=== PATIENT | female | born 1950 | race Caucasian/White ===

== ENCOUNTER → 2023-11-25 12:55 | Outpatient (REF) | payer OTHER, SELFPAY | LOC: RCS 12:55 | PROVIDERS: ATTENDING PHYSICIAN Internal Medicine; FAMILY PHYSICIAN Family Medicine | DX: I48.0 Paroxysmal atrial fibrillation (principal); I10 Essential (primary) hypertension; Z95.0 Presence of cardiac pacemaker | CPT/HCPCS: 93306 ==

== ENCOUNTER → 2023-12-10 13:48 | Outpatient (REF) | payer OTHER, SELFPAY | LOC: RAD 13:48 | PROVIDERS: ATTENDING PHYSICIAN Family Medicine | DX: S70.02XA Contusion of left hip, initial encounter (principal) | CPT/HCPCS: 73502 ==

== ENCOUNTER → 2024-03-11 12:08 | Outpatient (REF) | payer OTHER, SELFPAY | LOC: RAD 12:08 | PROVIDERS: ATTENDING PHYSICIAN Physician Assistant; FAMILY PHYSICIAN Family Medicine | DX: R10.9 Unspecified abdominal pain (principal); M35.00 Sjogren syndrome, unspecified; R53.83 Other fatigue; R63.4 Abnormal weight loss | CPT/HCPCS: 71270; 74178; Q9967 ==

== ENCOUNTER → 2024-05-17 16:47 | Outpatient (REF) | payer OTHER, SELFPAY | LOC: RAD 16:47 | PROVIDERS: ATTENDING PHYSICIAN Family Medicine | DX: R07.81 Pleurodynia (principal) | CPT/HCPCS: 71101 ==

== ENCOUNTER → 2024-05-25 13:51 | Outpatient (REF) | payer OTHER, SELFPAY | LOC: MRI 3T 13:51 | PROVIDERS: ATTENDING PHYSICIAN Psychiatry & Neurology Neurology; FAMILY PHYSICIAN Family Medicine | DX: R27.0 Ataxia, unspecified (principal) | CPT/HCPCS: 70553; A9575 ==

== ENCOUNTER → 2024-08-24 14:13 | Outpatient (REF) | payer OTHER, SELFPAY | LOC: MRI 14:13 | PROVIDERS: ATTENDING PHYSICIAN Neurological Surgery; FAMILY PHYSICIAN Family Medicine | DX: R26.81 Unsteadiness on feet (principal) | CPT/HCPCS: 72141 ==

== ENCOUNTER 2024-09-26 02:54 | Observation (INO) | payer OTHER, SELFPAY ==
[2024-09-26] VITALS (11 sets, daily range): BP systolic 115–172; BP diastolic 65–96; PULSE 82; O2SAT 100; BMI 18.7; BMI 18.2
[2024-09-26 01:07] LABS: Glucose - Point of Care 109 mg/dl (70-99)
--- NOTE | 2024-09-26 01:14 | ED.CVA ---
History of Present Illness
General
Chief Complaint: CVA/TIA Symptoms
Source: patient and spouse
Exam Limitations: none
Time Seen by Provider: 09/26/24 01:06
Nursing documentation reviewed up to this point in time: agreed with
Onset of Stroke Symptoms
Onset of symptoms known: Yes
Date of onset of symptoms: 09/26/24
Time of onset of symptoms: 00:00
History of Present Illness
History of Present Illness:
73-year-old female presents to the emergency department garbled speech at with inability to use right leg. She awakened around midnight and was assisted to the bathroom. She states that she could not move her right leg. who witnessed this
speech and the leg paresthesia states that all symptoms lasted for about 5 minutes.
Past History
Past History
ED Past Medical History: Arrthythmia, GERD and HTN
ED Past Surgical History: Cardiac (ablation), Orthopedic and Other (glaucoma, hemorrhoidectomy)
Social History
Tobacco: Non-smoker
Alcohol: None
Drug: None
Personal:
Living: with family
Review of Systems
Review of Systems
Allergies reviewed?: Yes
Other source history: family
All Other Systems: ROS reviewed and negative except as documented in HPI and ROS
Constitutional: Reports no symptoms
EENT: Reports no symptoms
Respiratory: Reports no symptoms
Cardiac: Reports no symptoms
ABD/GI: Reports no symptoms
: Reports no symptoms
Musculoskeletal: Reports no symptoms
Skin: Reports no symptoms
Neurological: Reports weakness; Denies headache
Endocrine: Reports no symptoms
Hematologic/Lymphatic: Reports no symptoms
Psychiatric: Reports anxiety
Phy Exam
General Physical Exam
General Presentation: well appearing and mild distress
General age: appears stated age
General Skin: warm and dry
General Habitus: normal and elderly
General Mental: alert
General Hydration: appears well hydrated
Cardiovascular Exam
Cardiovascular Exam: regular rate/rhythm
Neurological Exam
Neurological Exam: alert, oriented x3, CN II-XII intact, no motor deficits and speech normal
Musculoskeletal Exam
Musculoskeletal Exam: full ROM
Skin Exam
Skin Exam: normal color and warm/dry
Psychiatric Exam
Psychiatric Exam: normal mood/affect and anxious
Scores
NIH Stroke Score
Level of Consciousness: 0 - Alert
LOC Questions: 0-Answers both correctly
LOC Commands: 0-Performs both correctly
Best Horizontal Gaze: 0-Normal
Visual Fink: 0=Normal, no visual loss
Facial Palsy: 0=Normal, symmetrical
Motor - Right Arm: 0=No drift 10 seconds
Motor - Left Arm: 0=No drift 10 seconds
Motor - Right Le-No drift 5 seconds
Motor - Left Le-No drift 5 seconds
Limb Ataxia: 0-Absent
Sensation: 0-Normal
Best Language: 0-No aphasia
Dysarthria: 0-Normal
Extinction and Inattention: 0-No abnormality
Total Score:: 0
Thrombolytic Contraindication
Inclusion and Exclusion criteria reviewed: Yes
Course
Orders/Labs/Results
Orders:
Orders
09/26/24 01:03
ECG [Electrocardiogram (*1)] Urgent
Reason for Study: TIA/Stroke
09/26/24 01:04
EKG- Treatment ONCE
09/26/24 01:10
CT HEAD STROKE ALERT W/o Cont Urgent
Comment:
Reason For Exam: slurring, right leg weakness
CT HEAD/NECK ANG STROKE ALERT Urgent
Comment:
Reason For Exam: slurring, right leg weakness
Bedside Glucose- Treatment ONCE
Cardiac Monitoring- Treatment ONCE
09/26/24 01:13
Complete Blood Count/With Diff Urgent
Comprehensive Metabolic Panel Urgent
Erythrocyte Sed Rate Urgent
PTT Urgent
Prothrombin Time Urgent
Troponin I Urgent
09/26/24 01:45
Aspirin 325 mg PO NOW STA
Clopidogrel Bisulfate [Plavix] 600 mg PO NOW STA
Abnormal Lab Results
09/26/24 09/26/24
01:06 01:13
Hct 36.3 L %
(37.0-47.0)
Absolute Monos (auto) 0.8 H 10^3/uL
(0.1-0.6)
Monocytes % 12.9 H %
(1.7-9.3)
APTT 36.0 H Sec
(23.4-35.0)
Potassium 3.3 L mmol/L
(3.5-5.1)
BUN 21 H mg/dl
(7-17)
Glucose 120 H mg/dl
(70-99)
Calcium 10.6 H mg/dl
(8.4-10.2)
POC Glucose 109 H mg/dl
(70-99)
09/26/24 01:13
09/26/24 01:13
Vital Signs
Initial and Last Documented VS:
Initial Vital Signs
Pulse Resp
90 15
09/26/24 01:11 09/26/24 01:11
Last Documented Vital Signs
Temp Pulse Resp BP Pulse Ox
98.6 F 82 18 172/92 97
09/26/24 01:33 09/26/24 01:33 09/26/24 01:33 09/26/24 01:33 09/26/24 01:33
*Pulse Oximetry
Patient hypoxic: no
*EKG
Interpreted by ED Provider?: Yes
Comparison EKG: changes noted (Ventricular rate has increased)
Heart Rate: 86
Rhythm: ventricular paced
[place]: normal axis
Interval: long QT (500 ms)
QRS Pattern: normal QRS
Ischemia: no ischemia
*Critical Care Note
Total Time (30-74mins, 75-104mins- exclusive of procedures): 35 (Critical care statement: A total of 35 minutes of critical care time was provided for this patient. This time is separate from time utilized to perform the aforementioned documented
procedures. Aggregate critical care time includes only time during which I was engaged in work directl)
Update Note
Update Note:
Spoke with neurology, Dr. Khan who did not recommend TNKase based on the resolution of symptoms
ED Attending Note
-
Portions of this chart may have been created with voice recognition software.� Occasional wrong word or��sound alike� substitutions may have occurred due to the inherent limitations of voice recognition software.
Discharge Plan
Departure
Patient Disposition: Admit
Date of Disposition: 09/26/24
Time of Disposition: 02:11
Admit to: Telemetry
Presentation/result/management discussed w/ accepting MD/DO: Hospitalist
Discharge Problem:
Brain TIA, Afib, Pacemaker
Prescriptions:
No Action
multivitamin 1 EACH tablet
1 ea PO DAILY
sodium chloride 1 DROP drops
1 drp BOTH EYES PRN (Reason: Dry Eyes)
calcium carbonate 500 MG tablet
500 mg PO BID
loratadine 10 MG tablet
10 mg PO DAILY
LVincentacidoph,paracasei,B.animalis 1 EACH capsule
1 ea PO DAILY
famotidine 40 mg Tablet
40 mg PO BID
aspirin 81 mg Tablet,Delayed Release (Dr/Ec)
81 mg PO DAILY
valsartan 40 mg Tablet
40 mg PO BID
ezetimibe 10 mg Tablet
10 mg PO DAILY
hydrochlorothiazide 12.5 mg Tablet
12.5 mg PO DAILY
Lumigan 0.01 % Drops
1 drp OPHTHALMIC (EYE) DAILY
Rx Instructions:
left eye
Simbrinza 1-0.2 % Drops,Suspension
1 drp OPHTHALMIC (EYE) TID
Rx Instructions:
left eye
prednisolone acetate 1 % Drops,Suspension
1 drp BOTH EYES BID
astaxanthin 12 mg Capsule
12 mg PO DAILY
ubiquinol-pyrroloquin quinone 100-10 mg Capsule
1 cap PO DAILY
Interventions
Interventions:
*Risk Screen - Suicide Last Done: 09/26/24 01:15
*General Assessment Last Done: 09/26/24 01:13
*ED- Fall Risk Assessment Last Done: 09/26/24 01:13
*ED COVID-19 Vaccine History Last Done: 09/26/24 01:13
ED- Neurological Assessment Last Done: 09/26/24 01:34
ED- Cardiac Assessment Last Done: 09/26/24 01:41
ED Swallowing Screen Last Done: 09/26/24 01:52
Discharge Date and Time
Print Language: [place]
[2024-09-26 01:23] LABS: % Basophils 1.5 % (0-2); % Eosinophils 4.5 % (0-6); % Immature Granulocytes 0.2 % (0-0.5); % Lymphocytes 30.4 % (20.5-51.1); % Monocytes 12.9 % (1.7-9.3); % Neutrophils 50.5 % (42.2-75.2); Absolute Basophils 0.1 10^3/uL (0-0.2); Absolute Eosinophils 0.3 10^3/uL (0-0.7); Absolute Lymphocytes 1.8 10^3/uL (1.2-3.4); Absolute Monocytes 0.8 10^3/uL (0.1-0.6); Hematocrit 36.3 % (37.0-47.0); Hemoglobin 12.6 g/dL (12.0-16.0); Mean Corp Hgb Conc. 34.7 g/dL (33.0-37.0); Mean Corpuscular Hgb 29.6 pg (27.0-31.0); Mean Corpuscular Volume 85.2 fL (81.0-99.0); Mean Platelet Volume 9.4 fL (7.4-10.4); Nucleated Red Blood Cells % 0 %; Platelet Count 248 10^3/uL (130-400); Red Blood Cell Count 4.26 10^6/uL (4.20-5.40); Red Cell Dist. Width 13.1 % (11.5-14.5)
[2024-09-26 01:36] LABS: ALT (SGPT) 16 U/L (0-35); AST (SGOT) 24 U/L (14-36); Albumin 4.8 g/dl (3.5-5.0); Alkaline Phosphatase 106 U/L (38-126); Blood Urea Nitrogen 21 mg/dl (7-17); Calcium 10.6 mg/dl (8.4-10.2); Carbon Dioxide 28 mmol/L (22-30); Chloride 99 mmol/L (98-107); Estimated Creatinine Clearance 56 ml/min; Glucose 120 mg/dl (70-99); Potassium 3.3 mmol/L (3.5-5.1); Sodium 139 mmol/L (135-145); Total Bilirubin 0.5 mg/dl (0.2-1.3); Total Protein 7.8 g/dl (6.3-8.2); eGFR > 60.00
[2024-09-26 01:37] LABS: INR 0.97; PT 13.2 Sec (11.4-14.6)
[2024-09-26 01:48] LABS: Troponin I 0.013 ng/ml
[2024-09-26] MEDS: ASPIRIN 325 MG PO (01:55)
[2024-09-26] MEDS: PLAVIX 600 MG PO (01:55)
--- NOTE | 2024-09-26 02:18 | HPS.HSE ---
Family Physician
-
Family Physician: Ren Zapata
Chief Complaint
-
RLE Weakness / Slurred speech
History of Present Illness
Patient is a 73y F with PMH significant for hypertension, A-Fib s/p ablation and SSS s/p PPM who presents to ED complaining of RLE weakness and slurred speech. Patient states that she fell asleep this evening while watching the news. Her
woke her around midnight to go to bed and she went to the bathroom. While in the bathroom, patient noted that she could not move her RLE. It felt 'rooted to the floor'. She had no RUE weakness, numbness, etc. No headache or vision
changes. Her asked what was wrong and noted that the patient had very slow / slurred speech. Her symptoms lasted for about 5 minutes and then began to improve. At present she has no residual complaints and feels at her baseline.
Patient denies any prior h/o stroke, [place], etc.
She denies any recent illness, fevers / chills, cough, etc.
Patient states that she did start taking a new 'Macedonian herb' in the past few days.
Patient reports > 1 year history of weight loss, taste disturbance and fatigue. This started in 04/2023.
She has been evaluated by Neurology, Neurosurgery, etc since that time.
She had MRI brain in 05/2024 that showed enlarged ventricles and small R parafalcine meningioma.
Medical History
Past Medical History
Past Medical History: Reports Other
Additional Past Medical History:
Hypertension
GERD
SSS
Rosacea
Essential Tremor
Atrial Fibrillation s/p Ablation
Gait Dysfunction / Movement Disorder
Past Surgical History: Reports Other
Additional Past Surgical History:
PVI Ablation
PPM Placement
Hemorrhoidectomy
Trigger Finger Release
Social History
Tobacco: Non-smoker
Alcohol: Occasional
Drug: None
Personal:
Living: With Family
Family History
Family History: Not pertinent
Allergies / Home Medications
Allergies reflects when Allergies were last updated in [employer].
Home Medications with original date entered in [employer]
Allergy/Medication List:
Allergies
Allergy/AdvReac Type Severity Reaction Status Date / Time
levofloxacin [From Levaquin] Allergy rash, Verified 09/26/24 01:08
severe
itching
minocycline Allergy Rash Verified 09/26/24 01:08
penicillin V Allergy rash, sore Verified 09/26/24 01:08
mouth
sulfamethoxazole Allergy rash, Verified 09/26/24 01:08
[From Bactrim] severe
itching
trimethoprim [From Bactrim] Allergy rash, Verified 09/26/24 01:08
severe
itching
enironmental Allergy sneezing, Uncoded 09/26/24 01:08
runny nose
Home Medications
L.acidoph,paracasei,B.animalis 10 billion cell capsule 1 ea PO DAILY Supplement 08/28/16
calcium carbonate 500 mg PO BID Supplement 08/28/16
loratadine 10 mg tablet 10 mg PO DAILY ALLERGY 08/28/16
multivitamin 1 ea PO DAILY Supplement 08/28/16
aspirin 81 mg tablet,delayed release 81 mg PO DAILY Blood Clot Prevention/Tx 06/15/23
bimatoprost 0.01 % eye drops (Lumigan) 1 drp ophthalmic (eye) DAILY Eye Condition 06/15/23
brinzolamide 1 %-brimonidine 0.2 % eye drops,suspension (Simbrinza) 1 drp ophthalmic (eye) TID Eye Condition 06/15/23
ezetimibe 10 mg tablet 10 mg PO DAILY High Cholesterol 06/15/23
famotidine 40 mg tablet 40 mg PO BID Gastrointestinal Issue 06/15/23
hydrochlorothiazide 12.5 mg tablet 12.5 mg PO DAILY Fluid Retention/Swelling 06/15/23
valsartan 40 mg tablet 40 mg PO BID Blood Pressure 06/15/23
astaxanthin 12 mg capsule 12 mg PO DAILY 09/26/24
cod liver oil 5 ml PO DAILY 09/26/24
prednisolone acetate 1 % eye drops,suspension 1 drp BOTH EYES BID 09/26/24
resveratrol 75 mg-quercetin 250 mg-pterostilbene 62.5 mg capsule (Resveratin Plus) 1 cap PO BID 09/26/24
ubiquinol 100 mg-pyrroloquinoline quinone (coenzyme PQQ) 10 mg capsule 1 cap PO DAILY 09/26/24
Review of Systems
-
History Source: Patient
A 12 point ROS was completed and negative except as noted: Yes
Constitutional: Denies Fever or Chills
Respiratory: Denies Cough or Trouble Breathing
Cardiac: Denies Chest Pain or Palpitations
Abdomen/GI: Denies Abdominal Pain, Nausea, Vomiting or Diarrhea
: Denies Dysuria, Frequency or Flank Pain
Neurological: Reports Weakness and Other (Slurred speech); Denies Dizzy or Headache
Psych: Denies Depression or Anxiety
Physical Exam
Vital Signs
Vital Signs
Temp Pulse Resp BP Pulse Ox
98.6 F 82 18 172/92 97
09/26/24 01:33 09/26/24 01:33 09/26/24 01:33 09/26/24 01:33 09/26/24 01:33
Physical Exam
General: Other (73y F in no acute distress.)
HEENT: Moist mucous membranes and PERRLA
Respiratory: Clear; No Wheezes, Rales or Rhonchi
Cardiac: S1/S2, Regular Rhythm and Murmur (II/ BESS)
GI: Soft, Non Tender, Non Distended and Normal Bowel Sounds
Musculoskeletal: No Clubbing, No Cyanosis and No Edema
Neuro: AO x 3 and Nonfocal/grossly intact
Laboratory Results
-
09/26/24 01:13
04/07/25 01:13
Laboratory Results
PT 13.2 Sec (11.4-14.6) 09/26/24 01:13
INR 0.97 09/26/24 01:13
APTT 36.0 Sec (23.4-35.0) H 09/26/24 01:13
Total Bilirubin 0.5 mg/dl (0.2-1.3) 09/26/24 01:13
AST 24 U/L (14-36) 09/26/24 01:13
ALT 16 U/L (0-35) 09/26/24 01:13
Alkaline Phosphatase 106 U/L (38-126) 09/26/24 01:13
Troponin I 0.013 ng/ml 09/26/24 01:13
Impression/Plan
-
A/P: Patient is a 73y F with PMH significant for hypertension, A-Fib s/p ablation and ongoing gait / weight loss issues who presents to ED c/o RLE weakness and slurred speech.
RLE Weakness
Dysarthria
- Observe overnight for further evaluation and treatment.
- CT head in the ED with no acute findings. Stable / small meningioma.
- Monitor for any new / recurrent neurologic symptoms.
- Continue DAPT for now.
- Neurology evaluation for additional recommendations.
- MRI brain in the AM (has had MRIs done here in the past).
- ? if symptoms related to other / ongoing movement disorder, weight loss, taste issue?
- PT / OT / Speech evaluations.
Benign Hypertension
- Stable. Continue home regimen with holding parameters.
- Adjust for goal of normotension.
Atrial Fibrillation s/p Ablation
SSS s/p PPM Placement
- Stable. 100% paced rhythm at present.
- No note of recurrent A-Fib following ablation according to patient. No longer on OAC.
- Monitor on telemetry.
- PPM compatible with MRI - requires mode switch.
Mild Hypokalemia
- Replace orally. Check Mg.
DVT Prophylaxis: SCDs
Code Status: Full
[2024-09-26 04:41] LABS: Erythrocyte Sed Rate 21 mm/hour (0-20)
[2024-09-26] MEDS: KCL 40 MEQ PO (05:25)
--- NOTE | 2024-09-26 06:27 | PTCARENOTE ---
Patient is a 73y F arrived on @S at 03:40 with PMH significant for hypertension, A-Fib s/p ablation and SSS s/p PPM, Hypertension, GERD, SSS, Rosacea. Essential TremorAtrial Fibrillation s/p Ablation. Gait Dysfunction / Movement Disorder presented
to ED complaining of RLE weakness and slurred speech. Past Surgical History: PVI Ablation, PPM Placement, Hemorrhoidectomy & Trigger Finger Release. Pt AOx3, bed in a low position. call light in reach, care on-going
--- NOTE | 2024-09-26 08:25 | PTOTSP ---
Speech Language Pathology
Pt seen for speech/language evaluations. No dysarthria noted. Strangled hoarse vocal quality noted, which pt has been going on for some time. Question diagnosis such as muscle tension dysphonia. Notified of OP voice therapy available. Language
evaluated via the Quick Aphasia Battery (QAB), form 1. Pt with an overall score of 9.38, indicative of overall abilities WNL. Pt scored WNL on all subtests except word finding and grammatical construction, both of which scored as mildly impaired.
Pt/ reported this is pt's baseline, not related to acute events.
Pt also seen for clinical bedside swallow evaluation. P.O. trials of regular solids and thin liquids provided. Adequate mastication, bolus formation, and A-P transit noted with no oral residue. No overt signs of aspiration.
Recommend:
(1) Regular solids/thin liquids
(2) General aspiration precautions
(3) Meds as tolerated
(4) Consider outpatient voice/language tx pending further neurology workup
(5) [employer] to continue to follow while in hospital
[2024-09-26 08:33] LABS: Hematocrit 35.4 % (37.0-47.0); Hemoglobin 12.3 g/dL (12.0-16.0); Mean Corp Hgb Conc. 34.7 g/dL (33.0-37.0); Mean Corpuscular Hgb 29.8 pg (27.0-31.0); Mean Corpuscular Volume 85.7 fL (81.0-99.0); Mean Platelet Volume 10.3 fL (7.4-10.4); Platelet Count 228 10^3/uL (130-400); Red Blood Cell Count 4.13 10^6/uL (4.20-5.40); Red Cell Dist. Width 13.3 % (11.5-14.5)
--- NOTE | 2024-09-26 08:48 | W.PN.HOSP.TC ---
Today's Communication/Plan
-
Brain MRI
Assessment / Plan
Assessment / Plan
Physical exam:
General: Well Developed, Well Nourished and No Apparent Distress
HEENT: Normocephalic, Atraumatic and Moist Mucous Membranes
Respiratory: Clear to Auscultation; Negative Wheezes, Rales or Rhonchi
Cardiac: Regular Rhythm and S1/S2
GI: Soft, Nontender and Nondistended
Musculoskeletal: No Clubbing, No Cyanosis and No Edema
Neuro: Awake, Alert and Oriented, no neurological deficits but bradykinesia present.
Psych: Calm
A/P:
TIA:
Continue aspirin and Plavix for 3 weeks
No need for statins per neurology
MRI brain today (has had MRIs done here in the past). Initially neurology discontinued but patient asked if this could be done. Reached out to neurology again and plan to do MRI today.
Appreciate neurology consult-discussed with neuro
Discussed with at bedside
Diabetes mellitus:
Diabetic education
Lifestyle changes for now and consider medications down the road
Paroxysmal atrial fibrillation:
Status post ablation in the past and completely pacer dependent.
Status post pacemaker (MRI compatible-requires mode switch)
Had a recent interrogation and no evidence of recurrence of A-fib
No need for anticoagulation unless proven stroke or TIA and recurrence of A-fib.
Hypertension:
Continue home antihypertensives
DVT prophylaxis:
SCDs
Will add Lovenox if she stays longer
CODE STATUS:
Full code
Anticipated Discharge: Within 24 hours
Subjective/Interval History
-
Date of Service: September 26, 2024
Patient feels back to normal this morning. She does have some movement issues that she is being seen outpatient neurologist as outpatient.
Objective Data
-
Labs:
Laboratory Results
09/26/24 09/26/24
01:13 07:18
WBC 6.0 5.0
Hgb 12.6 12.3
Hct 36.3 L 35.4 L
Plt Count 248 228
PT 13.2
INR 0.97
APTT 36.0 H
Sodium 139 Pending
Potassium 3.3 L Pending
Chloride 99 Pending
Carbon Dioxide 28 Pending
BUN 21 H Pending
Creatinine 0.7 Pending
Glucose 120 H Pending
Calcium 10.6 H Pending
Total Bilirubin 0.5
AST 24
ALT 16
Alkaline Phosphatase 106
Vital Signs:
Vital Signs
Temp Pulse Resp BP Pulse Ox
97.7 F 69 16 130/72 100
09/26/24 07:30 09/26/24 07:30 09/26/24 07:30 09/26/24 07:30 09/26/24 07:30
I&O
09/25/24 09/26/24 09/27/24
06:59 06:59 06:59
Intake Total 240 / 240
Balance 240 / 240
[2024-09-26 08:49] LABS: Blood Urea Nitrogen 15 mg/dl (7-17); Carbon Dioxide 31 mmol/L (22-30); Chloride 104 mmol/L (98-107); Estimated Creatinine Clearance 63 ml/min; Glucose 98 mg/dl (70-99); HDL Cholesterol 59 mg/dl; LDL Cholesterol, Calculated 60 mg/dl; Magnesium 2.1 mg/dl (1.6-2.3); Potassium 3.8 mmol/L (3.5-5.1); Sodium 142 mmol/L (135-145); Total Cholesterol 131 mg/dl (50-199); Triglyceride 60 mg/dl (10-149); Very Low Density Lipoprotein 12 mg/dl (0-30); eGFR > 60.00
[2024-09-26] MEDS: DIOVAN 40 MG PO ×2 (08:49→20:36)
[2024-09-26] MEDS: PLAVIX 75 MG PO (08:49)
[2024-09-26] MEDS: ASPIR LOW (ENTERIC COATED) 81 MG PO (08:49)
[2024-09-26] MEDS: SIMBRINZA 1%-0.2% OPHTH SUSP 1 DROP OPHTH ×3 (08:50→22:10)
[2024-09-26] MEDS: PRED FORTE 1% EYE DROPS 1 DROP BOTH EYES ×2 (08:51→20:35)
[2024-09-26 09:40] LABS: Glycohemoglobin (HgbA1c) 5.8 % (4.0-5.6)
--- NOTE | 2024-09-26 10:47 | CON.NEURO ---
Neuro Assessment/Plan
Assessment
TIA
aib, s/p ablation, s/p pacemaker
HDL 59, LDL 60
MRI brain 05/2024 imgs rev'd right parieto occipital falx meningioma
head CT img's rev'd showing falx meningioma, ventriculomegaly
CTA head/neck imgs rev'd no carotid atherosclerosis
Plan
73 year old woman clinical TIA
would continue ASA 81, add 21 days of Plavix
with clean carotids and excellent lipid numbers, I don't think statin is necessary
with relatively few risk factors, afib ablation, anti coagulation is optional, but I would vote no
no need for MRI as seeing stroke would not change agent, particularly as she recently had one.
spoke with patient and who are in agreement
Consultation
Order
Date of Consultation: 09/26/24
Requesting Provider: Kobi Torre
Reason for Consult: TIA
Subjective/Objective
Subjective Data
Date of Service: September 26, 2024
reviewed from h&p:
Patient is a 73y F with PMH significant for hypertension, A-Fib s/p ablation and SSS s/p PPM who presents to ED complaining of RLE weakness and slurred speech. Patient states that she fell asleep this evening while watching the news. Her
woke her around midnight to go to bed and she went to the bathroom. While in the bathroom, patient noted that she could not move her RLE. It felt 'rooted to the floor'. She had no RUE weakness, numbness, etc. No headache or vision
changes. Her asked what was wrong and noted that the patient had very slow / slurred speech. Her symptoms lasted for about 5 minutes and then began to improve. At present she has no residual complaints and feels at her baseline.
Patient denies any prior h/o stroke, [place], etc.
During the episode, could understand what she was saying though it was clearly slurred. Today she feels at baseline
Objective Data
Vital Signs
Temp Pulse Resp BP Pulse Ox
36.5 C 69 16 130/72 100
09/26/24 07:30 09/26/24 08:49 09/26/24 07:30 09/26/24 08:49 09/26/24 07:30
Lab Results
09/26/24 07:18
09/26/24 07:18
PT 13.2 Sec (11.4-14.6) 09/26/24 01:13
INR 0.97 09/26/24 01:13
APTT 36.0 Sec (23.4-35.0) H 09/26/24 01:13
Sodium 142 mmol/L (135-145) 09/26/24 07:18
Potassium 3.8 mmol/L (3.5-5.1) 09/26/24 07:18
BUN 15 mg/dl (7-17) 09/26/24 07:18
Glucose 98 mg/dl (70-99) 09/26/24 07:18
Calcium 10.0 mg/dl (8.4-10.2) 09/26/24 07:18
LDL Cholesterol, Calc 60 mg/dl 09/26/24 07:18
Patient Allergies
levofloxacin [From Levaquin] Allergy (Verified 09/26/24 01:08)
rash, severe itching
minocycline Allergy (Verified 09/26/24 01:08)
Rash
penicillin V Allergy (Verified 09/26/24 01:08)
rash, sore mouth
sulfamethoxazole [From Bactrim] Allergy (Verified 09/26/24 01:08)
rash, severe itching
trimethoprim [From Bactrim] Allergy (Verified 09/26/24 01:08)
rash, severe itching
enironmental Allergy (Uncoded 09/26/24 01:08)
sneezing, runny nose
Physical Exam
-
AAOx3, speech clear, language intact
VFF, EOMI, face symmetric
full strength b/l UE/LE
sensation intact to touch
Medications
-
Active Medications
Generic Name Dose Route Start Last Admin
Trade Name Freq PRN Reason Stop Dose Admin
Acetaminophen 650 mg 09/26/24 04:04
Acetaminophen 325 Mg Tablet PO 10/24/24 04:03
Q4HPRN PRN
Mild Pain / Temp > 101
Aspirin 81 mg 09/26/24 08:00 09/26/24 08:49
Aspirin 81 Mg (Enteric Coated) Tablet PO 10/24/24 07:59 81 mg
DAILY RICHARD Administration
Brinzolamide/Brimonidine Tartrate 1 drop 09/26/24 08:00 09/26/24 08:50
Brinzolamide 1%/Brimonidine 0.2% (Ophth Susp) 8 Ml Bottle OPHTH 10/24/24 07:59 1 drop
TID RICHARD Administration
Clopidogrel Bisulfate 75 mg 09/26/24 08:00 09/26/24 08:49
Clopidogrel 75 Mg Tablet PO 10/24/24 07:59 75 mg
DAILY RICHARD Administration
Latanoprost 0 drop 09/26/24 22:00
Latanoprost 0.005% (Ophthalmic Solution) 2.5 Ml Bottle OPHTH 10/24/24 21:59
HS RICHARD
Prednisolone Acetate 1 drop 09/26/24 08:00 09/26/24 08:51
Prednisolone 1% (Ophthalmic Suspension) Bottle BOTH EYES 10/24/24 07:59 1 drop
BID RICHARD Administration
Valsartan 40 mg 09/26/24 08:00 09/26/24 08:49
Valsartan 40 Mg Tablet PO 10/24/24 07:59 40 mg
BID RICHARD Administration
Home Medications
�Medication �Instructions �Recorded
L.acidoph,paracasei,B.animalis 10 1 ea PO DAILY Supplement 08/28/16
billion cell capsule
calcium carbonate 500 mg PO BID Supplement 08/28/16
loratadine 10 mg tablet 10 mg PO DAILY ALLERGY 08/28/16
multivitamin 1 ea PO DAILY Supplement 08/28/16
aspirin 81 mg tablet,delayed 81 mg PO DAILY Blood Clot 06/15/23
release Prevention/Tx
bimatoprost 0.01 % eye drops 1 drp ophthalmic (eye) DAILY Eye 06/15/23
(Lumigan) Condition
brinzolamide 1 %-brimonidine 0.2 % 1 drp ophthalmic (eye) TID Eye 06/15/23
eye drops,suspension (Simbrinza) Condition
ezetimibe 10 mg tablet 10 mg PO DAILY High Cholesterol 06/15/23
famotidine 40 mg tablet 40 mg PO BID Gastrointestinal Issue 06/15/23
hydrochlorothiazide 12.5 mg tablet 12.5 mg PO DAILY Fluid 06/15/23
Retention/Swelling
valsartan 40 mg tablet 40 mg PO BID Blood Pressure 06/15/23
astaxanthin 12 mg capsule 12 mg PO DAILY 09/26/24
cod liver oil 5 ml PO DAILY 09/26/24
prednisolone acetate 1 % eye 1 drp BOTH EYES BID 09/26/24
drops,suspension
resveratrol 75 mg-quercetin 250 1 cap PO BID 09/26/24
mg-pterostilbene 62.5 mg capsule
(Resveratin Plus)
ubiquinol 100 mg-pyrroloquinoline 1 cap PO DAILY 09/26/24
quinone (coenzyme PQQ) 10 mg
capsule
--- NOTE | 2024-09-26 12:07 | CM ---
Met with pt and her at bedside. Initial assessment completed
Lives with her in a 2 story town home; [address], FF set up
Independent at baseline, uses rolling walker when tired
DME - rolling walker - borrowed
SNF/HH - denies past hx. Has done outpatient PT
Has ride at d/c
PCP - Ren Zapata
Pharm - [facility]
Reviewed/given CASIANO
PT recs - outpatient PT
Plan - anticipate home with outpatient PT; will need Rx
[2024-09-26 12:17] LABS: Glucose - Point of Care 103 mg/dl (70-99)
--- NOTE | 2024-09-26 13:26 | PTCARENOTE ---
09/26/2024 DIABETES EDUCATION
I met with patient and spouse for diabetes education, her HbA1c while inpatient is 5.8%. I educated her she has pre-diabetes and HbA1c of 6.5% or higher is diagnostic of diabetes.
I educated on physiology of T2D, managing with medications, monitoring BG, nutrition, activity, sleep and managing stress.
I educated and reviewed using [employer] Next glucometer, member acknowledged understanding with a self demonstration of checking BS.
Discussed normal target glucose ranges. I reinforced signs of hyperglycemia, hypoglycemia; BS parameters and recommended HbA1c goals, written material provided. Encouraged patient to follow up with her PCP for post d/c appointment. Provided
list of endocrinologists if desired, to contact insurance company to verify in network status. Information provided on the outpatient pre-diabetes classes and RD information. Patient verbalized understanding.
[2024-09-26 18:14] LABS: Glucose - Point of Care 105 mg/dl (70-99)
[2024-09-26 21:14] LABS: Glucose - Point of Care 113 mg/dl (70-99)
[2024-09-26] MEDS: XALATAN OPHTHALMIC SOLUTION 1 DROP OPHTH (22:11)
[2024-09-27 03:05] VITALS: BP 132/75
[2024-09-27 05:17] VITALS: BMI 18.4
[2024-09-27 07:03] LABS: Glucose - Point of Care 91 mg/dl (70-99)
[2024-09-27 07:20] VITALS: BP 131/77
--- NOTE | 2024-09-27 08:32 | W.PN.HOSP.TC ---
Today's Communication/Plan
-
Discharge planning
Assessment / Plan
Assessment / Plan
Physical exam:
General: Well Developed, Well Nourished and No Apparent Distress
HEENT: Normocephalic, Atraumatic and Moist Mucous Membranes
Respiratory: Clear to Auscultation; Negative Wheezes, Rales or Rhonchi
Cardiac: Regular Rhythm and S1/S2
GI: Soft, Nontender and Nondistended
Musculoskeletal: No Clubbing, No Cyanosis and No Edema
Neuro: Awake, Alert and Oriented, no neurological deficits but bradykinesia present.
Psych: Calm
A/P:
TIA:
Continue aspirin and Plavix for 3 weeks
No need for statins per neurology
MRI brain (has had MRIs done here in the past). Initially neurology discontinued but patient asked if this could be done. Reached out to neurology again and plan to do MRI. Unfortunately MRI machine is down-can arrange o outpatient with neuro and
or PCP if needed.
Appreciate neurology consult-discussed with neuro
Discussed with at bedside
Discharge today
Diabetes mellitus:
Diabetic education
Lifestyle changes for now and consider medications down the road
Paroxysmal atrial fibrillation:
Status post ablation in the past and completely pacer dependent.
Status post pacemaker (MRI compatible-requires mode switch)
Had a recent interrogation and no evidence of recurrence of A-fib
No need for anticoagulation unless proven stroke or TIA and recurrence of A-fib.
Hypertension:
Continue home antihypertensives
DVT prophylaxis:
SCDs
Will add Lovenox if she stays longer
CODE STATUS:
Full code
Anticipated Discharge: Today
Subjective/Interval History
-
Date of Service: September 27, 2024
No new complaints
Objective Data
-
Vital Signs:
Vital Signs
Temp Pulse Resp BP Pulse Ox
98.0 F 77 15 131/77 100
09/27/24 07:20 09/27/24 07:20 09/27/24 07:20 09/27/24 07:20 09/27/24 07:20
I&O
09/26/24 09/27/24 09/28/24
06:59 06:59 06:59
Intake Total 240 / 240 1580 / 1580
Balance 240 / 240 1580 / 1580
[2024-09-27] MEDS: DIOVAN 40 MG PO (08:34)
[2024-09-27] MEDS: ASPIR LOW (ENTERIC COATED) 81 MG PO (08:34)
[2024-09-27] MEDS: PLAVIX 75 MG PO (08:34)
[2024-09-27] MEDS: SIMBRINZA 1%-0.2% OPHTH SUSP 1 DROP OPHTH (08:35)
[2024-09-27] MEDS: PRED FORTE 1% EYE DROPS 1 DROP BOTH EYES (08:35)
--- NOTE | 2024-09-27 09:52 | PTCARENOTE ---
09/27/2024 DIABETES EDUCATION
Met with patient and her spouse, provided pre diabetes class information and business card for RD. She will contact department if interested in future class.
--- NOTE | 2024-09-27 09:54 | W.DCSUMMARY ---
Discharge Summary
Discharge Data
Date of Admission: 09/26/24
Date of Discharge: 09/27/24
-
Pending Results: No
Hospital Course
Patient 73 years old female history of hypertension, A-fib status post ablation in the past and sick sinus syndrome status post pacemaker, presented to the hospital with transient neurological deficit of right lower extremity weakness and slurred
speech. Neurology consulted. Patient had a CT scan of the head with no acute intracranial abnormalities except for 0.6 cm meningioma along the posterior right falx. Patient also had a CTA of the head and neck with no significant LVO. Patient's
pacemaker is compatible with MRI and there were some discussions if she was can have it done or not but ultimately since patient has remained neurologically intact with one more brief episode that resolved on its own and more importantly also our
MRI machine has broken down so neurology determined that patient does not need MRI of the brain while in the hospital and she has been cleared for discharge from neurological standpoint. Neurology did not recommend to start statins and does
recommend dual antiplatelet therapy for 3 weeks and afterwards monotherapy. Patient will be discharged in stable condition today.
Discharge Plan
-
Patient Disposition: Home (Routine Discharge)
Discharge Diagnosis/Procedures: Transient ischemic attack.
Diet: Low Cholesterol and Diabetic, Carb Controlled
Activity: As tolerated
Blood Work: Please PCP to order CBC, BMP within 1 week
Referrals:
Ren Zapata MD [Family Provider] - in less than 1 week
Lei Valderrama MD [Active] - in four to six weeks
Prescriptions:
New
clopidogrel 75 mg Tablet
75 mg PO DAILY 21 Days Qty: 21 0RF
Continued
multivitamin 1 EACH tablet
1 ea PO DAILY
Rx Instructions:
AREDS2
calcium carbonate 500 MG tablet
500 mg PO BID
loratadine 10 MG tablet
10 mg PO DAILY
aamir Greene B.animalis 1 EACH capsule
1 ea PO DAILY
famotidine 40 mg Tablet
40 mg PO BID
aspirin 81 mg Tablet,Delayed Release (Dr/Ec)
81 mg PO DAILY
valsartan 40 mg Tablet
40 mg PO BID
ezetimibe 10 mg Tablet
10 mg PO DAILY
hydrochlorothiazide 12.5 mg Tablet
12.5 mg PO DAILY
Lumigan 0.01 % Drops
1 drp OPHTHALMIC (EYE) DAILY
Rx Instructions:
left eye
Simbrinza 1-0.2 % Drops,Suspension
1 drp OPHTHALMIC (EYE) TID
Rx Instructions:
left eye
prednisolone acetate 1 % Drops,Suspension
1 drp BOTH EYES BID
astaxanthin 12 mg Capsule
12 mg PO DAILY
ubiquinol-pyrroloquin quinone 100-10 mg Capsule
1 cap PO DAILY
cod liver oil Oil
5 ml PO DAILY
Resveratin Plus 75-250-62.5 mg Capsule
1 cap PO BID
Discharge Orders:
Discharge Patient (As Directed); Ordered 09/27/24
Ordered By: Matt Torre
Discharge Date and Time
Discharge Date/Time: 09/27/24 14:11
Print Language: AUSTRAL[place]
--- NOTE | 2024-09-27 10:16 | CM ---
Pt for discharge today
Has transport home
PT recs - outpatient PT - will need Rx
Plan - anticipate home no needs
[2024-09-27 11:20] VITALS: BP 108/70
[2024-09-27 11:33] LABS: Glucose - Point of Care 126 mg/dl (70-99)
--- NOTE | 2024-09-27 13:01 | W.PN.NEURO.1 ---
Today's Communication / Plan
-
ok to discharge
ASA 81
Plavix x21 days
no statin
Neuro Assessment/Plan
Assessment
TIA
aib, s/p ablation, s/p pacemaker
HDL 59, LDL 60
MRI brain 05/2024 imgs rev'd right parieto occipital falx meningioma
head CT img's rev'd showing falx meningioma, ventriculomegaly
CTA head/neck imgs rev'd no carotid atherosclerosis
Plan
73 year old woman clinical TIA
would continue ASA 81, add 21 days of Plavix
with clean carotids and excellent lipid numbers, I don't think statin is necessary
with relatively few risk factors, afib ablation, anti coagulation is optional, and I would vote no unless she develops new afib
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
when I spoke with the patient and her yesterday, they were ok with skipping the MRI but later changed their mind and wanted it
however today the MRI is broken, estimated 2 more days of admission to get it as an inpatient which I cannot justify; spoke with them again that seeing a stroke or not on MRI would not change the management, and finding something else like a tumor
would be very unlikely with a normal MRI 4 months ago
Subjective/Objective
Subjective Data
Date of Service: September 27, 2024
this morning had an episode of slurred/drawn out speech lasting ~20 seconds and resolved
anxious about not being able to get MRI as our inpatient MRI scanner is down
Objective Data
Vital Signs
Temp Pulse Resp BP Pulse Ox
36.8 C 87 16 108/70 100
09/27/24 11:20 09/27/24 11:20 09/27/24 11:20 09/27/24 11:20 09/27/24 11:20
Lab Results
09/26/24 07:18
09/26/24:18
PT 13.2 Sec (11.4-14.6) 09/26/24:13
INR 0.97 09/26/24:13
APTT 36.0 Sec (23.4-35.0) H 09/26/24:13
Sodium 142 mmol/L (135-145) 09/26/24
Potassium 3.8 mmol/L (3.5-5.1) 09/26/24:
BUN 15 mg/dl (7-17) 09/26/24:
Glucose 98 mg/dl (70-99) 09/26/24
Calcium 10.0 mg/dl (8.4-10.2) 09/26/2418
LDL Cholesterol, Calc 60 mg/dl 09/26/24:18
Patient Allergies
levofloxacin [From Levaquin] Allergy (Verified 09/26/24 01:08)
rash, severe itching
minocycline Allergy (Verified 09/26/24 01:08)
Rash
penicillin V Allergy (Verified 09/26/24:08)
rash, sore mouth
sulfamethoxazole [From Bactrim] Allergy (Verified 09/26/24 01:08)
rash, severe itching
trimethoprim [From Bactrim] Allergy (Verified 09/26/24 01:08)
rash, severe itching
enironmental Allergy (Uncoded 09/26/24 01:08)
sneezing, runny nose
Physical Exam
-
AAOx3, speech clear, language intact
VFF, EOMI, face symmetric
full strength b/l UE/LE
sensation intact to touch
== END 2024-09-27 14:11 | disposition home or self-care (01) ==
LOC: 2 SOUTH 02:54
PROVIDERS: ADMITTING PHYSICIAN Hospitalist; ATTENDING PHYSICIAN Hospitalist; EMERGENCY PHYSICIAN Student in an Organized Health Care Education/Training Program; FAMILY PHYSICIAN Family Medicine; OTHER PHYSICIAN Psychiatry & Neurology Clinical Neurophysiology
DX: G45.9 Transient cerebral ischemic attack, unspecified (principal); R47.81 Slurred speech; I10 Essential (primary) hypertension; I48.0 Paroxysmal atrial fibrillation; Z95.0 Presence of cardiac pacemaker; I49.5 Sick sinus syndrome; E87.6 Hypokalemia; Z79.02 Long term (current) use of antithrombotics/antiplatelets; Z79.82 Long term (current) use of aspirin; E11.9 Type 2 diabetes mellitus without complications; D32.0 Benign neoplasm of cerebral meninges
CPT/HCPCS: 70450; 70496; 70498; 80048; 80053; 80061; 82962; 83036; 83735; 84484; 85025; 85027; 85610; 85652; 85730; 92523; 92610; 93005; 97162; 97166; 99291; G0378; Q9967

== ENCOUNTER → 2024-10-12 10:08 | Outpatient (REF) | payer OTHER, SELFPAY | LOC: RCS 10:08 | PROVIDERS: ATTENDING PHYSICIAN Internal Medicine; FAMILY PHYSICIAN Family Medicine | DX: I48.0 Paroxysmal atrial fibrillation (principal); I10 Essential (primary) hypertension; Z95.0 Presence of cardiac pacemaker | CPT/HCPCS: 93306 ==

== ENCOUNTER → 2024-10-26 13:43 | Outpatient (REF) | payer OTHER, SELFPAY | LOC: WDC 13:43 | PROVIDERS: ATTENDING PHYSICIAN Family Medicine | DX: Z12.31 Encounter for screening mammogram for malignant neoplasm of breast (principal); M81.0 Age-related osteoporosis without current pathological fracture | CPT/HCPCS: 77063; 77067; 77080 ==